=== PATIENT | male | born 1970 | race Caucasian/White ===

== ENCOUNTER 2017-03-20 16:35 | Emergency (ER) | payer SELFPAY ==
[2017-03-20] MEDS ORDERED: ONDANSETRON HCL 4 MG TAB.RAPDIS PO ONE (16:52)
[2017-03-20] MEDS ORDERED: DIPHENOXYLATE HCL/ATROPINE 1 EACH TABLET PO ONE (16:52)
[2017-03-20] MEDS ORDERED: DEXAMETHASONE SOD PHOS 4 MG/ML VIAL IM ONE (16:52)
[2017-03-20] MEDS ORDERED: IPRATROPIUM/ALBUTEROL SULFATE 3 ML AMPUL.NEB NEB ONE ×2 (16:52)
[2017-03-20] MEDS ORDERED: BUDESONIDE 0.5MG/2ML AMPUL.NEB NEB ONE (16:52)
[2017-03-20] MEDS ORDERED: methylPREDNISolone ACETATE 80 MG/ML VIAL IM ONE (16:53)
[2017-03-20] MEDS ORDERED: BUDESONIDE 0.5MG/2ML AMPUL.NEB NEB SCH (17:00)
--- NOTE | 2017-03-20 17:59 | ED Physician Documentation ---
Dyspnea - HISTORIAN Historian: patient - HPI Stated Complaint: Cough/Congestion Chief Complaint: Dyspnea Onset: days ago (7) Duration: continues in ED Initiating Event: upper respiratory illness Severity: moderate Exacerbated By: exertion Associated Symptoms: other (dry cough) Further Comments: no - ROS CONST: no problems EYES/ENT: none GI/: vomiting, nausea, diarrhea NEURO/PSYCH: denies: headache MS/SKIN/LYMPH: none - PAST HX Lung Disease: asthma Cardiac Disease: none PE Risk Factors: none Surgeries/Procedures: none Immunizations: referred to PCP Allergies/Adverse Reactions: Allergies Allergy/AdvReac Type Severity Reaction Status Date / Time naproxen Allergy Verified 03/20/17 16:46 - SOCIAL HX Smoking History: cigarettes Alcohol Use: none Drug Use: none - FAMILY HX Family History: no significant history - VITAL SIGNS Vital Signs: Vital Signs Temp Pulse Resp BP Pulse Ox 98.9 F 84 24 150/95 98 03/20/17 16:35 03/20/17 16:35 03/20/17 16:35 03/20/17 16:35 03/20/17 16:35 - REVIEWED ASSESSMENTS Nursing Assessment Reviewed: Yes Vitals Reviewed: Yes Progress - Results/Orders Results/Orders: cxr, flu a and b - Progress Progress: pt. given duoneb, pulmicort 0.5 mg nebulizer txs in ER, 80 mg depo medrol, 8 mg decadron im in er, lomotil 1 p.o. and zofran 4 mg p.o. in ER. Critical Care Note - Critical Care Note Total Time (mins): 0 ED Results Lab/Radiology - Lab Results Lab Results: none ordered - Radiology Radiology Impressions: cxr neg - Orders Orders: ED Orders Category Date Time Status CHEST 2 VIEW [CHEST P.A.&LAT 2 VIEWS] [RAD] Stat Exams 03/20/17 Ordered INFLUENZA A&B Routine Lab 03/20/17 17:05 Ordered Budesonide [Pulmicort] Med 03/20/17 16:52 Discontinued 0.5 mg NEB .STK-MED ONE Budesonide [Pulmicort] Med 03/20/17 17:00 Ordered 0.5 mg NEB 1T Dexamethasone Sod Phosphate [Decadron] Med 03/20/17 16:52 Discontinued 8 mg IM NOW ONE Diphenoxylate HCl/Atropine [Lomotil] Med 03/20/17 16:52 Discontinued 1 each PO NOW ONE Ipratropium/Albuterol Sulfate [Duoneb] Med 03/20/17 16:52 Discontinued 3 ml NEB .STK-MED ONE Ipratropium/Albuterol Sulfate [Duoneb] Med 03/20/17 16:52 Discontinued 3 ml NEB NOW ONE Ondansetron HCl Rapdis [Zofran Odt] Med 03/20/17 16:52 Discontinued 4 mg PO NOW ONE methylPREDNISolone ACETATE [Depo-Medrol] Med 03/20/17 16:53 Discontinued 80 mg IM NOW ONE Dyspnea Physical Exam - EXAM General Appearance: alert, mild distress EENT: eye inspection normal, ENT inspection normal, pharynx normal, no signs of dehydration, ABI, no nystagmus, TM's nml Neck: nml inspection Respiratory: no pain on inspiration, speaks full sentences, wheezes. No: rales CVS: reg. rate & rhythm, no murmur, no gallop Abdomen: non-tender, no organomegaly, no distention Skin: color nml Extremities: non-tender Neuro/Psych: oriented x3 Discharge Clincal Impression: Bronchitis Referrals: Primary Doctor,No [Primary Care Provider] - 2 Days Comments: Discharged with Albuterol 0.083% prefills #60 1 via nebulizer qid, Keflex 2 capsules twice daily x 1 week. Condition: Stable Disposition: 01 HOME, SELF-CARE Decision to Admit: NO Decision Time: 17:59
[2017-03-20 18:10] VITALS: BP 130/68
--- NOTE | 2017-03-20 18:44 | Diagnostic Imaging Report ---
SHANNON KEYS~ [facility] [address] [facility].[address] [address] ~ ~ ~ ~ Report Submission Date: Mar 20, 2017 5:32:08 PM CASH PROCESSING SPECIALIST Patient ~ Study Name: GUTIERREZ CARRILLO ~ Date: Mar 20, 2017 5:23:16 PM CASH PROCESSING SPECIALIST ~ Modality Type: CR Gender: M ~ Description: CHEST : 72 ~ Institution: [facility] Physician: SHANNON KEYS ~ ~ ~ Examination: PA and lateral chest. History: Evaluate lung loo. Comparison exam: None available. Findings: PA lateral chest demonstrate a normal cardiac and mediastinal silhouette. No focal infiltrate.~ No blunting of the costophrenic margins.~ Osseous structures are appropriate for age. Impression: No acute pulmonary process. ~ Electronically signed on Mar 20, 2017 5:32:08 PM CASH PROCESSING SPECIALIST by: Zan SMITH
== END 2017-03-20 18:08 | disposition home or self-care (01) ==
LOC: ED 16:35
DX: J40 Bronchitis, not specified as acute or chronic (principal)
CPT/HCPCS: 71020; 94640; 96372; 99283; J1040; J1100; J7626; A9270

== ENCOUNTER 2018-05-02 12:42 | Emergency (ER) | payer OTHER ==
[2018-05-02 13:12] VITALS: BP 147/97
[2018-05-02] MEDS ORDERED: IPRATROPIUM/ALBUTEROL SULFATE 3 ML AMPUL.NEB NEB ONE (13:18)
[2018-05-02] MEDS ORDERED: methylPREDNISolone SOD SUCC 125 MG/2 ML VIAL IVP ONE (13:18)
--- NOTE | 2018-05-02 13:23 | ED Physician Documentation ---
Upper Respiratory Symptoms - HISTORIAN Historian: patient - HPI Stated Complaint: Upper Respiratory Complaints Chief Complaint: Cough/ Upper Respiratory Additional Information: Patient presents to ED with a 3 week history of nasal congestion, cough, bilateral ear pain. Patient denies fever. He states his mother was recently hospitalized with pneumonia. Onset: days ago (21) Duration: constant Context: denies: recent foreign travel Severity: moderate Associated Symptoms: earache, runny nose, sinus pain, sinus drainage, productive cough, hurts to breathe. denies: chest pain, shortness of breath - ROS CONST/EYES: denies: weakness CVS/RESP: denies: chest pain, shortness of breath LYMPH: denies: swollen glands GI/: denies: abdominal pain, vomiting, nausea NEURO/PSYCH: denies: fainting MS/SKIN: denies: muscle aches, rash - PAST HX Lung Disease: COPD PE Risk Factors: none Allergies/Adverse Reactions: Allergies Allergy/AdvReac Type Severity Reaction Status Date / Time naproxen Allergy Verified 03/20/17 16:46 Home Medications: Ambulatory Orders Medication Instructions Recorded Amoxicillin/Potassium Clav 1 each PO BID #20 tablet 05/02/18 [Augmentin 875Mg/125Mg] predniSONE [Deltasone] 20 mg PO DIRECTED #6 tablet 05/02/18 - SOCIAL HX Smoking History: cigarettes, greater than 1 pack/day Alcohol Use: none Drug Use: none - FAMILY HX Family History: none - VITAL SIGNS Vital Signs: Vital Signs Temp Pulse Resp BP Pulse Ox 97.9 F 85 20 147/97 99 05/02/18 12:43 05/02/18 12:43 05/02/18 12:43 05/02/18 12:43 05/02/18 12:43 - REVIEWED ASSESSMENTS Nursing Assessment Reviewed: Yes Vitals Reviewed: Yes ED Results Lab/Radiology - Radiology Radiology Impressions: Report Submission Date: May 02, 2018 2:07:21 PM BLOW OFF WORKER Patient Study Name: GUTIERREZ CARRILLO Date: May 02, 2018 1:27:19 PM BLOW OFF WORKER Modality Type: DX Gender: M Description: CHEST 2VIEW : 72 Institution: [facility] Physician: KENNETH ROSEN Pa and lateral chest Clinical history :short of breath Technique pa and lateral upright Findings: The lung loo are clear. I see no hilar or mediastinal mass. There is no pleural effusion or lesion of the bony thorax. Impression: No acute pulmonary disease Electronically signed on May 02, 2018 2:07:21 PM BLOW OFF WORKER by: Wilder Garcia - Orders Orders: ED Orders Category Date Time Status Place IV Lock 1T Care 05/02/18 13:19 Active CHEST 2VIEW [RAD] Stat Exams 05/02/18 Taken INFLUENZA A&B Stat Lab 05/02/18 13:41 Ordered Ipratropium/Albuterol Sulfate [Duoneb] Med 05/02/18 13:18 Discontinued 3 ml NEB NOW ONE methylPREDNISolone SOD SUCC [Solu-MEDROL] Med 05/02/18 13:18 Discontinued 125 mg IVP NOW ONE Upper Respiratory Symptoms - EXAM General Appearance: no acute distress, alert EENT: PERRL, ear nml, pain over sinuses, maxillary Neck: supple Respiratory: no resp. distress, wheezes (scattered wheezing bilaterally) Abdomen: non-tender CVS: reg rate & rhythm, heart sounds normal Skin: color nml, no rash, warm,dry Extremities: non-tender Neuro/Psych: oriented x3 Discharge Clincal Impression: COPD with acute exacerbation Prescriptions: Amoxicillin/Potassium Clav [Augmentin 875Mg/125Mg] 1 each PO BID #20 tablet predniSONE [Deltasone] 20 mg PO DIRECTED #6 tablet Referrals: Alfonso Thorpe MD [Primary Care Provider] - 2 Days Additional Instructions: Report Submission Date: May 02, 2018 2:07:21 PM BLOW OFF WORKER Patient Study Name: GUTIERREZ CARRILLO Date: May 02, 2018 1:27:19 PM BLOW OFF WORKER Modality Type: DX Gender: M Description: CHEST 2VIEW : 72 Institution: [facility] Physician: KENNETH ROSEN Pa and lateral chest Clinical history :short of breath Technique pa and lateral upright Findings: The lung loo are clear. I see no hilar or mediastinal mass. There is no pleural effusion or lesion of the bony thorax. Impression: No acute pulmonary disease Electronically signed on May 02, 2018 2:07:21 PM BLOW OFF WORKER by: Wilder Garcia Condition: Stable Decision to Admit: NO Date of Decison to Admit: 05/02/18 Decision Time: 14:01
--- NOTE | 2018-05-02 14:14 | Diagnostic Imaging Report ---
KENNETH ROSEN [facility] [address] [facility] [address] [place], [place]. [address] Report Submission Date: May 02, 2018 2:07:21 PM WELLNESS GUIDE Patient Study Name: GUTIERREZ CARRILLO Date: May 02, 2018 1:27:19 PM WELLNESS GUIDE Modality Type: DX Gender: M Description: CHEST 2VIEW : 72 Institution: [facility] Physician: KENNETH ROSEN Pa and lateral chest Clinical history :short of breath Technique pa and lateral upright Findings: The lung loo are clear. I see no hilar or mediastinal mass. There is no pleural effusion or lesion of the bony thorax. Impression: No acute pulmonary disease Electronically signed on May 02, 2018 2:07:21 PM WELLNESS GUIDE by: Wilder SMITH
== END 2018-05-02 14:25 | disposition home or self-care (01) ==
LOC: ED 12:42
DX: J44.1 Chronic obstructive pulmonary disease with (acute) exacerbation (principal); Z72.0 Tobacco use
CPT/HCPCS: 71046; 94640; 99283; S1016